=== PATIENT | female | born 1995 | race Caucasian/White ===

== ENCOUNTER 2018-12-08 10:58 | Outpatient (CLI) | payer SELFPAY | END 2018-12-08 10:59 | disposition home or self-care (01) | LOC: C.RADH 10:58 | DX: M45.5 Ankylosing spondylitis of thoracolumbar region (principal) ==

== ENCOUNTER 2019-01-05 15:00 | Outpatient (CLI) | payer OTHER, SELFPAY | END 2019-01-22 14:35 | disposition home or self-care (01) | LOC: C.MRIC 15:00 | DX: M54.5 Low back pain (principal) ==

== ENCOUNTER 2019-01-11 08:41 | Outpatient (CLI) | payer OTHER, SELFPAY | END 2019-01-11 08:42 | disposition home or self-care (01) | LOC: C.USIC 08:41 | DX: N64.4 Mastodynia (principal) ==